=== PATIENT | female | born 1990 | race American Indian/Alaskan Native ===

== ENCOUNTER 2021-01-27 11:15 | Outpatient (CLI) | payer MEDICAID ==
[2021-01-27 12:03] VITALS: BP 103/65
[2021-01-27] MEDS ORDERED: LACTATED RINGERS 500 ML IV ONE (12:08)
[2021-01-27] MEDS ORDERED: TERBUTALINE 1 MG/1 ML INJ SUB-Q SCH (13:00)
[2021-01-27 14:39] LABS: Bilirubin,Urine NEG (Negative); Blood,Urine NEG (Negative); Color,Urine Straw (Yellow); Protein,Urine <15 mg/dL mg/dL (Negative); Urobilinogen,Urine < 2.0 mg/dL (<2.0)
--- NOTE | 2021-01-27 15:47 | Ultrasound Report ---
ULTRASOUND OBSTETRIC LIMITED INDICATION / CLINICAL INFORMATION: contractions. Clinical Gestational Age (GA) in weeks, days: 24 weeks 4 days. TECHNIQUE: Transabdominal. COMPARISON: None available. FINDINGS: HEART RATE (beats per minute): 148 bpm PRESENTATION: Cephalic. PLACENTA: Posterior grade 1 and free of the os. CERVIX: Closed. 3.9 cm. ADDITIONAL FINDINGS: None. IMPRESSION: 1. No significant abnormality. Scribed by: Amanda Obregon RDMS, RVT Scribed: 01/27/2021 2:00 PM I have reviewed the images, agree with this report, and edited this report as needed. Signer Name: Socrates Mascorro MD Signed: 01/27/2021 3:42 PM Workstation Name: [id number]
[2021-01-27] MEDS ORDERED: TERBUTALINE 1 MG/1 ML INJ SUB-Q ONE (15:52)
== END 2021-01-27 15:11 | disposition home or self-care (01) ==
LOC: TRG 11:15 → APU 11:16 → TRG 15:11
PROVIDERS: ATTEND Obstetrics & Gynecology
DX: O26.892 Other specified pregnancy related conditions, second trimester (principal); R10.9 Unspecified abdominal pain; Z3A.24 24 weeks gestation of pregnancy
CPT/HCPCS: 36415; 59025; 76815; 81001; 82731; 96372; J3105; J7120; 96360

== ENCOUNTER 2021-04-19 01:51 | Inpatient (IN) | payer MEDICAID ==
--- NOTE | 2021-04-19 04:56 | Ultrasound Report ---
On the ultrasound FINDINGS: BPD measures 35 weeks 6 days, head circumference 32 weeks 6 days, abdominal circumference 3 4 weeks 1 day femoral length 36 weeks 0 days. heart rate appears normal. AHI appears normal. He art rate 1 46 bpm IMPRESSION: Live intrauterine . Signer Name: Darwin Ricci MD Signed: 04/19/2021 4:52 AM Workstation Name: [email or web address]
[2021-04-19] MEDS ORDERED: METHYLERGONOVINE MALEATE 0.2 MG/ML VIAL IM PRN (05:39)
[2021-04-19] MEDS ORDERED: NalbUPHINE 10 MG/1 ML INJ IV PRN (05:39)
[2021-04-19] MEDS ORDERED: NALOXONE 0.4 MG/1 ML INJ IV PRN (05:39)
[2021-04-19] MEDS ORDERED: miSOPROStol 200 MCG TAB PR PRN ×2 (05:39→22:42)
[2021-04-19] MEDS ORDERED: TERBUTALINE 1 MG/1 ML INJ SUB-Q PRN (05:39)
[2021-04-19] MEDS ORDERED: LIDOCAINE (2%) 20 MG/1 ML VIAL 20 ML MDV INFILTRATI ONE (05:39)
[2021-04-19] MEDS ORDERED: PROMETHAZINE 25 MG TAB PO PRN ×2 (05:39→08:42)
[2021-04-19] MEDS ORDERED: ACETAMINOPHEN 325 MG TAB PO PRN ×2 (05:39→08:42)
[2021-04-19] MEDS ORDERED: ONDANSETRON 4 MG/2 ML INJ IV PRN ×2 (05:39→08:42)
[2021-04-19] MEDS ORDERED: ePHEDrine SULFATE 50 MG/1 ML INJ IV PRN ×2 (05:39→06:52)
[2021-04-19] MEDS ORDERED: fentaNYL 100 MCG/2 ML INJ IV PRN (05:39)
[2021-04-19] MEDS ORDERED: OXYTOCIN 10 UNIT/1 ML INJ IM PRN (05:39)
[2021-04-19] MEDS ORDERED: LOPERAMIDE 2 MG CAP PO PRN (05:39)
[2021-04-19] MEDS ORDERED: MINERAL OIL 30 ML ORAL LIQD PO PRN (05:39)
[2021-04-19] MEDS ORDERED: CARBOPROST TROMETHAMINE 250 MCG/1 ML INJ IM PRN (05:39)
[2021-04-19] MEDS ORDERED: AMPICILLIN/NS 2 GM/100 ML 2 GM/100 ML BAG IV ONE (05:45)
--- NOTE | 2021-04-19 05:45 | History and Physical Report ---
History of Present Illness Date of examination: 04/19/21 Date of admission: 04/19/2021 Chief complaint: "water broke" History of present illness: EDC Confirmation: 05/15/2021 Past History : 1 Term Births: 0 Premature Births: 0 Living Children: 0 Para: 0 Mult. Births: 0 Prev : 0 Aborta: 0 Elect. Ab: 0 Spont. 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 Had fat transferred from abdomen and buttocks to her breast. Past Medical History Anesthesia Complications: negative Anemia: negative Autoimmune Disorder: negative Bleeding Disorder: negative Blood Transfusions: negative Breast Disease: negative Diabetes: negative Heart Disease: negative Hypertension: negative Hepatitis/Liver Disease: negative Kidney Disease/UTI: negative Neurologic/Epilepsy/Migraines: negative Phlebitis/Varicosities: negative Psychiatric: negative Pulmonary Disease/Asthma: negative Thyroid Disease: negative Hospitalizations: negative Surgery (Non-obstetrics/gynecology nurse): Breast Augmentation: 2019. Had fat transferred from abdomen and buttocks to her breast. Abnormal PAP: negative ANEL Exposure: negative Infertility: negative Uterine Anomaly: negative Uterine Surgery (not C/S): negative Other Gynecologic Problems: negative Family Hx: None Infection History Hx of STD: none HIV Risk Eval: no Hepatitis B Risk Eval: low risk Personal hx. of genital herpes: no Partner hx. of genital herpes: no Rash, Viral, or Febrile illness since last LMP? no Varicella/Chicken Pox Status: Previous Disease TB Risk: no Genetic History Congenital Heart Defect: Mom: no Dad: no Louisa Disease: Mom: no Dad: no Thalassemia Mom: no Dad: no Neural Tube Defect Mom: no Dad: no Down's Syndrome Mom: no Dad: no Justin-Sachs Mom: no Dad: no Sickle Cell Disease/Trait Mom: no Dad: no Hemophilia Mom: no Dad: no Muscular Dystrophy Mom: no Dad: no Cystic Fibrosis Mom: no Dad: no Mónica Chorea Mom: no Dad: no Mental Retardation Mom: no Dad: no Fragile X Mom: no Dad: no Other Genetic/Chromosomal Disorder Mom: no Dad: no Child w/other defect Mom: no Dad: no Enviromental Exposures Xray Exposure: no Medication, drug, or alcohol use since LMP: no Chemical/Other Exposure: no Exposure to Cat Liter: no Hx of Parvovirus (Fifth Disease): no Occupational Exposure to Children: none Active Medications (reviewed today): None Current Allergies (reviewed today): No known allergies Past History Past Medical History: no pertinent history, other (see HPI) Past Surgical History: breast surgery, other (see HPI) 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 History: fibroids, other (see HPI) Family/Genetic History: other (see HPI) Social history: no significant social history, other (see HPI) - Obstetrical History Expected Date of Delivery: 05/15/21 Actual Gestation: 36 Week(s) 2 Day(s) : 1 Para: 0 Hx # Term Pregnancies: 0 Number of Pregnancies: 0 Spontaneous Abortions: 0 Induced : 0 Number of Living Children: 0 Medications and Allergies Allergies Allergy/AdvReac Type Severity Reaction Status Date / Time No Known Allergies Allergy Unverified 01/27/21 12:07 Review of Systems All systems: negative Genitourinary: leakage of fluid, contractions, no vaginal bleeding - Vital Signs Vital signs: Vital Signs Temp Pulse Resp BP Pulse Ox 98.8 F 98 H 15 121/72 96 04/19/21 02:19 04/19/21 02:19 04/19/21 02:19 04/19/21 02:19 04/19/21 02:19 Temp Pulse Resp BP Pulse Ox 98.8 F 99 H 15 122/81 99 04/19/21 02:19 04/19/21 05:35 04/19/21 02:19 04/19/21 05:25 04/19/21 05:35 - Physical Exam Breasts: Positive: deferred Cardiovascular: Regular rate Lungs: Positive: Normal air movement Abdomen: Positive: normal appearance, soft. Negative: tenderness, guarding Genitourinary (Female): Positive: normal external genitalia, normal perenium Vulva: both: normal Vagina: Positive: discharge (clear) Uterus: Positive: normal size, normal contour, other (gravid) Anus/Rectum: Positive: normal perianal skin, heme negative Extremities: Positive: normal - Obstetrical FHR: auscultation normal, category 1 Uterine Contraction Monitor Mode: External Cervical Dilatation: 3 Cervical Effacement Percentage: 100 station: -1 Uterine Contraction Pattern: Regular Uterine Tone Measurement Phase: Contraction Uterine Contraction Intensity: Strong/Firm Results All other labs normal. Tests: (1) RPR, Rfx Qn RPR/Confirm TP (936448) RPR Non Reactive Non Reactive *1 Tests: (2) HIV Ag/Ab with Reflex ([id number]) HIV Screen 4th Generation wRfx Non Reactive Non Reactive *2 Tests: (1) Ct, Ng, Trich vag by EDWARDO ([id number]) Order Note: Clinical Information: SRC:VR SRC:UR Chlamydia by EDWARDO Negative Negative *1 Gonococcus by EDWARDO Negative Negative *2 Trich vag by EDWARDO Negative Negative *3 Tests: (2) Strep Gp B EDWARDO+Rflx ([id number]) ! Strep Gp B EDWARDO+Rflx [A] Positive Negative *4 Tests: (1) Profile I (20280930) HBsAg Screen Negative Negative *1 RPR Non Reactive Non Reactive *2 Rubella Antibodies, IgG 1.27 index Immune >0.99 *3 Non-immune <0.90 Equivocal 0.90 - 0.99 Immune >0.99 ABO Grouping O *4 Rh Factor Positive *5 Please note: Prior records for this patient's ABO / Rh type are not available for additional verification. Antibody Screen Negative Negative *6 WBC [H] 11.4 x10E3/uL 3.4-10.8 *7 RBC 4.26 x10E6/uL 3.77-5.28 *8 Hemoglobin 12.7 g/dL 11.1-15.9 *9 Hematocrit 37.3 % 34.0-46.6 *10 MCV 88 fL 79-97 *11 MCH 29.8 pg 26.6-33.0 *12 MCHC 34.0 g/dL 31.5-35.7 *13 RDW 13.6 % 11.7-15.4 *14 Platelets 241 x10E3/uL 150-450 *15 Neutrophils 79 % Not Estab. *16 Lymphs 17 % Not Estab. *17 Monocytes 4 % Not Estab. *18 Eos 0 % Not Estab. *19 Basos 0 % Not Estab. *20 ! Immature Cells <No Reported Value> *21 Neutrophils (Absolute) [H] 8.9 x10E3/uL 1.4-7.0 *22 Lymphs (Absolute) 2.0 x10E3/uL 0.7-3.1 *23 Monocytes(Absolute) 0.4 x10E3/uL 0.1-0.9 *24 Eos (Absolute) 0.0 x10E3/uL 0.0-0.4 *25 Baso (Absolute) 0.0 x10E3/uL 0.0-0.2 *26 ! Immature Granulocytes 0 % Not Estab. *27 ! Immature Grans (Abs) 0.0 x10E3/uL 0.0-0.1 *28 ! NRBC <No Reported Value> *29 Hematology Comments: <No Reported Value> *30 Tests: (2) HB Solu + Rflx Frac ([id number]) Hemoglobin (Hgb) Solubility Negative Negative *31 Tests: (3) HIV Ag/Ab with Reflex ([id number]) HIV Screen 4th Generation wRfx Non Reactive Non Reactive *32 Tests: (4) HCV Antibody reflex to EDWARDO ([id number]) ! HCV Ab <0.1 s/co ratio 0.0-0.9 *33 Tests: (5) Interpretation: ([id number]) ! Interpretation: SPRCS *34 Negative Not infected with HCV, unless recent infection is suspected or other evidence exists to indicate HCV infection. Assessment and Plan 30yo @36.2 EGA presents to triage with c/o leaking clear fluid since 0200 this am. US confirms SROM. Pt reports feeling contractions q5mins now with va ginal pressure. SVE 3/100/-1 and pt tolerated well. POC d/w pt and SO. Questions encouraged and addressed. Pt verbalizes understanding and agrees to POC. Records reviewed and pt positive for GBS. Orders placed for admission to labor. Anticipate . Dr. Larson made aware. - Patient Problems (1) SROM (spontaneous rupture of membranes) Current Visit: Yes Status: Acute (2) 36 to 37 weeks gestation of Current Visit: Yes Status: Acute (3) GBS carrier Current Visit: Yes Status: Acute
[2021-04-19] MEDS ORDERED: OXYTOCIN DRIP 30 UNITS/500 ML BAG IV SCH (06:00)
[2021-04-19] MEDS: LACTATED RINGERS 1,000 ML IV SCH ×2 (06:14→07:05)
[2021-04-19 06:22] LABS: Hematocrit 34.1 % (30.3-42.9); Mean Corpuscular HGB Conc 32 % (30-34); Mean Corpuscular Volume 86 fl (79-97); Platelet Count 246 K/mm3 (140-440); Red Blood Count 3.97 M/mm3 (3.65-5.03); Red Cell Distribution Width 14.9 % (13.2-15.2)
[2021-04-19] MEDS ORDERED: NALOXONE 2 MG/2 ML INJ IV PRN (06:52)
--- NOTE | 2021-04-19 06:55 | Anesthesia Consultation ---
Anesthesia Consult and Med Hx Date of service: 04/19/21 - Airway Anesthetic Teeth Evaluation: Poor ROM Head & Neck: Adequate Mental/Hyoid Distance: Adequate Mallampati Class: Class II - Pulmonary Exam CTA: Yes - Cardiac Exam Cardiac Exam: RRR - Pre-Operative Health Status ASA Pre-Surgery Classification: ASA2 Proposed Anesthetic Plan: Epidural - Pulmonary Hx Smoking: No Hx Asthma: No Hx Respiratory Symptoms: No SOB: No COPD: No Home Oxygen Therapy: No Hx Pneumonia: No Hx Sleep Apnea: No - Cardiovascular System Hx Hypertension: No Hx Coronary Artery Disease: No Hx Heart Attack/AMI: No Hx Angina: No Hx Percutaneous Transluminal Coronary Angioplasty (PTCA): No Hx Cardia Arrhythmia: No Hx Pacemaker: No Hx Internal Defibrillator: No Hx Valvular Heart Disease: No Hx Heart Murmur: No Hx Peripheral Vascular Disease: No - Central Nervous System Hx Neuromuscular Disorder: No Hx Seizures: No CVA: No Hx Back Pain: Yes Hx Psychiatric Problems: No - Gastrointestinal Hx Ulcer: No Hx Gastroesophageal Reflux Disease: Yes - Endocrine Hx Renal Disease: No Hx End Stage Renal Disease: No Hx Cirrhosis: No Hx Liver Disease: No Hx Insulin Dependent Diabetes: No Hx Non-Insulin Dependent Diabetes: No Hx Thyroid Disease: No Hx Hypothyroidism: No Hx Hyperthyroidism: No - Hematic Hx Anemia: No Hx Sickle Cell Disease: No - Other Systems Hx Alcohol Use: No Hx Substance Use: No Hx Cancer: No Hx Obesity: Yes
[2021-04-19] MEDS ORDERED: fentaNYL-BUPIV 2 MCG/ML-0.125% 200 MCG/100 ML BAG EPIDURAL SCH (07:00)
--- NOTE | 2021-04-19 07:32 | Progress Note ---
Labor Epidural - Labor Epidural Start Time: 07:10 Stop Time: 07:15 Performed by:: DANICA JIMENEZ Procedure: Patient is requesting a laboring epidural for laboring pain. Patient IDed, H&P reviewed, all questions and concerns were answered, and consent was signed. Timeout was performed at bedside. Patient in sitting position. Sterile prep and drape was performed. [3] ml of 1% lidocaine skin wheal at L[3]- L [4]. 18- gauge Tuohy epidural needle was advanced to loss of resistance with saline technique 6cm. Negative CSF negative blood. Epidural catheter advanced to [10] centimeters. [NEGATIVE] Aspiration [NEGATIVE] test dose. Sterile dressing applied. Patient tolerated procedure.
[2021-04-19] MEDS ORDERED: PROMETHAZINE 25 MG RECT SUPP PR PRN (08:42)
[2021-04-19] MEDS ORDERED: diphenhydrAMINE 25 MG CAP PO PRN (08:42)
[2021-04-19] MEDS ORDERED: WITCH HAZEL/ GLYCERIN PAD TP PRN (08:42)
[2021-04-19] MEDS ORDERED: LANOLIN/ZINC/DIMETHICONE (LANSINOH) 7 GM TP PRN (08:42)
[2021-04-19] MEDS ORDERED: MAGNESIUM HYDROXIDE (MOM) ORAL LIQD UDC PO PRN (08:42)
[2021-04-19] MEDS ORDERED: HYDROcodone/ACETAMINOPHEN 5-325 MG TAB PO PRN (08:42)
--- NOTE | 2021-04-19 09:27 | Procedure Note ---
OB Delivery Note - Delivery Date of Delivery: 04/19/21 Surgeon: HILTON WILKES Estimated blood loss: 300cc - Vaginal Delivery presentation: vertex Delivery position: OA Intrapartum events: PROM->1hr before delivery Delivery induction: none Delivery monitor: external FHT, external uterine Route of delivery: Delivery placenta: spontaneous Episiotomy: none Delivery laceration: 2nd degree Delivery repair: vicryl Anesthesia: local, epidural - Infant A at 1 minute: 9 at 5 minutes: 9 Infant Gender: Female (2.27 Kg)
[2021-04-19] MEDS ORDERED: AMPICILLIN/NS 1 GM/50 ML 1 GM/50 ML BAG IV SCH (10:00)
[2021-04-19] MEDS: IBUPROFEN 800 MG TAB PO SCH ×2 (11:08→21:47)
[2021-04-19] MEDS: PRENATAL VIT27-FE FUMARATE-FOLIC ACID VIT TAB PO SCH (11:08)
--- NOTE | 2021-04-19 12:38 | Post Anesthesia Evaluation ---
- Post Anesthesia Evaluation Patient Participated: Yes Airway Patent: Yes Stable Respiratory Function: Yes Nausea/Vomiting: No Temp > 96.8F: Yes Pain Manageable: Yes Adequeate Hydration: Yes Anesthesia Complications: No Block Receding Appropriately: Yes Patient on Ventilator: No
[2021-04-19 21:25] LABS: Hematocrit 28.5 % (30.3-42.9); Hemoglobin 9.4 gm/dl (10.1-14.3)
[2021-04-19] MEDS: DOCUSATE SODIUM 100 MG CAP PO SCH (21:47)
[2021-04-19] MEDS ORDERED: METHYLERGONOVINE 0.2 MG TABLET PO SCH (23:00)
[2021-04-20] MEDS: IBUPROFEN 800 MG TAB PO SCH ×3 (05:24→21:16)
--- NOTE | 2021-04-20 09:24 | Progress Note ---
Assessment and Plan - Patient Problems (1) Spontaneous vaginal delivery Current Visit: Yes Status: Acute Plan to address problem: Continue routine care consult ordered Will continue to monitor. Subjective - Subjective Principal diagnosis: , GBS+ Interval history: Patient is PPD #1 s/p complicated by 2nd degree laceration. Voices no complaints. Desires consult. Scant bleeding. Ambulating, voiding, and tolerating diet. Denies chest pain, SOB, n/v. POC reviewed. Patient reports: appetite normal, voiding normally, pain well controlled, ambulating normally [place]: doing well Objective - Vital Signs Latest vital signs: Vital Signs Temp Pulse Resp BP BP Pulse Ox Pulse Ox 04/20/21 00:37 99.6 F 90 18 102/60 98 04/19/21 20:40 82 112/58 04/19/21 20:35 98.6 F 94 H 18 96 04/19/21 19:10 98 04/19/21 16:20 98.6 F 99 H 20 113/70 04/19/21 12:06 98.1 F 86 18 113/66 100 04/19/21 11:08 16 04/19/21 10:30 100 04/19/21 10:25 98.4 F 84 16 108/65 97 04/19/21 10:03 67 93 04/19/21 09:55 93 H 99 04/19/21 09:53 83 117/72 04/19/21 09:50 85 99 04/19/21 09:45 84 98 04/19/21 09:40 89 99 04/19/21 09:35 79 99 04/19/21 09:30 98 H 97 04/19/21 09:25 78 97 04/19/21 09:23 71 109/63 Intake and Output 04/19/21 04/20/21 04/20/21 23:59 07:59 15:59 Intake Total 360 360 Output Total 600 1100 Balance -240 -740 Intake: Oral 360 Intake, Free Water 360 Output: Urine 600 1100 Void 600 1100 Other: Total, Intake Amount 120 Total, Output Amount 600 500 # Voids Void 1 1 - Exam Breasts: Present: normal Abdomen: Present: soft Vulva: both: normal Uterus: Present: firm, fundal height below umbilicus Extremities: Present: normal - Labs Labs: Abnormal lab results 10/23/21 Range/Units 21:13 Hgb 9.4 L (10.1-14.3) gm/dl Hct 28.5 L (30.3-42.9) %
[2021-04-20] MEDS: PRENATAL VIT27-FE FUMARATE-FOLIC ACID VIT TAB PO SCH (12:08)
[2021-04-20] MEDS: DOCUSATE SODIUM 100 MG CAP PO SCH ×2 (12:08→21:16)
[2021-04-21] MEDS: IBUPROFEN 800 MG TAB PO SCH (04:41)
--- NOTE | 2021-04-21 07:21 | Ultrasound Report ---
OB ultrasound INDICATION: well-being FINDINGS: There is a single live intrauterine . BPD measures 35 weeks 6 days, head circumfer ence 32 weeks 6 days, abdominal circumference 34 weeks 1 day and femoral length 36 weeks 0 days. Feta l heart rate appears normal. IMPRESSION: Live intrauterine with ultrasound age of 34 weeks 5 days. Signer Name: Darwin Ricci MD Signed: 04/21/2021 7:17 AM Workstation Name: [id number]
--- NOTE | 2021-04-21 08:44 | Discharge Summary ---
Providers - Providers Date of Admission: 04/19/21 08:28 Date of discharge: 04/21/21 Attending physician: ERICA HAWKINS 04/20/21 09:24 Consult to Revenue Coordinator [CONS] Routine Reason For Exam: patient with difficulty with latch Primary care physician: ERICA HAWKINS Hospitalization Reason for admission: IUP - , labor, rupture of membranes Delivery: Episiotomy: none Laceration: 2nd degree Other procedures: none complications: none Discharge diagnosis: delivery [place] baby: female Condition at discharge: Good Disposition: 01 HOME / SELF CARE / HOMELESS - Discharge Diagnoses (1) SROM (spontaneous rupture of membranes) Status: Acute (2) 36 to 37 weeks gestation of Status: Acute (3) GBS carrier Status: Acute Plan - Provider Discharge Summary Activity: routine, no sex for 6 weeks, no heavy lifting 4 weeks, no strenuous exercise Diet: routine Instructions: routine Additional instructions: [] Smoking cessation referral if applicable(refer to patient education folder for contact #) [] Refer to [facility]'s [facility] Booklet Call your doctor immediately for: * Fever > 100.5 * Heavy vaginal bleeding ( >1 pad per hour) * Severe persistent headache * Shortness of breath * Reddened, hot, painful area to leg or breast * Drainage or odor from incision. * Keep incision clean and dry at all times and follow doctor's instructions regarding bathing/showering Please call [phone] and schedule an appointment in 4 weeks for your visit. Thank you! - Follow up plan Follow up: ERICA HAWKINS MD [Primary Care Provider] - 7 Days
[2021-04-21] MEDS: PRENATAL VIT27-FE FUMARATE-FOLIC ACID VIT TAB PO SCH (09:59)
[2021-04-21] MEDS: DOCUSATE SODIUM 100 MG CAP PO SCH (09:59)
[2021-04-21 13:19] VITALS: BP 130/69
== END 2021-04-21 14:07 | disposition home or self-care (01) | DRG 775 ==
LOC: TRG 01:51 → APU 02:01 → LD 05:21 → TRG 05:39 → LD 08:28 → OB 10:28
PROVIDERS: ADMIT Obstetrics & Gynecology; ATTEND Obstetrics & Gynecology
PROC: 10E0XZZ Delivery of Products of Conception, External Approach (ICD-10-PCS; principal; 2021-04-19)
PROC: 0KQM0ZZ Repair Perineum Muscle, Open Approach (ICD-10-PCS; 2021-04-19)
PROC: 3E0R3BZ Introduction of Anesthetic Agent into Spinal Canal, Percutaneous Approach (ICD-10-PCS; 2021-04-19)
PROC: 00HU33Z Insertion of Infusion Device into Spinal Canal, Percutaneous Approach (ICD-10-PCS; 2021-04-19)
DX: O60.14X0 Preterm labor third trimester with preterm delivery third trimester, not applicable or unspecified (principal); O42.013 Preterm premature rupture of membranes, onset of labor within 24 hours of rupture, third trimester; Z3A.36 36 weeks gestation of pregnancy; O99.824 Streptococcus B carrier state complicating childbirth; Z37.0 Single live birth; Z20.822 Contact with and (suspected) exposure to COVID-19; O99.62 Diseases of the digestive system complicating childbirth; K21.9 Gastro-esophageal reflux disease without esophagitis; O70.1 Second degree perineal laceration during delivery
CPT/HCPCS: 36415; 59025; 76815; 76816; 76819; 85014; 85018; 85027; 86592; 86762; 86850; 86900; 86901; 96360; G0378; J0290; J2590; J7120; U0003